=== PATIENT | female | born 2000 | race Caucasian/White ===

== ENCOUNTER 2021-02-25 20:31 | Emergency (ER) | payer OTHER, MEDICAID ==
[~2021-02-25] VITALS: Ht 165.1 cm; Wt 77.1 kg
[2021-02-25 20:35] VITALS: BP_SYST 124
[2021-02-25] MEDS ORDERED: IBUP-1969 PO (21:10)
[2021-02-25] MEDS ORDERED: IBUPROFEN 600 MG TABLET PO ONE (21:15)
[2021-02-25 22:28] VITALS: BP_SYST 124
== END 2021-02-25 22:28 | disposition home or self-care (01) ==
LOC: SED 20:31
DX: S40.012A Contusion of left shoulder, initial encounter (principal); S70.12XA Contusion of left thigh, initial encounter; S20.211A Contusion of right front wall of thorax, initial encounter; Z79.899 Other long term (current) drug therapy; V49.49XA Driver injured in collision with other motor vehicles in traffic accident, initial encounter; Y93.89 Activity, other specified; Y92.89 Other specified places as the place of occurrence of the external cause; Y99.8 Other external cause status
CPT/HCPCS: 71045; 99283